=== PATIENT | male | born 2000 | race Caucasian/White ===

== ENCOUNTER 2023-03-31 19:50 | Emergency (ER) | payer SELFPAY ==
[~2023-03-31] VITALS: Ht 190.5 cm; Wt 99.7 kg
[2023-03-31 20:06] VITALS: BP 153/93; PULSE 98; RESP 15; TEMP 98.6; O2SAT 100
== END 2023-03-31 22:07 | disposition home or self-care (01) ==
LOC: ER 19:50
DX: S61.213A Laceration without foreign body of left middle finger without damage to nail, initial encounter (principal); X58.XXXA Exposure to other specified factors, initial encounter; Y93.89 Activity, other specified; Y92.89 Other specified places as the place of occurrence of the external cause; Y99.8 Other external cause status
CPT/HCPCS: 73130; 99283